=== PATIENT | female | born 1960 | race Two or more races ===

== ENCOUNTER → 2016-11-27 | Outpatient (CLI) | payer BC ==
[2016-11-27 12:28] LABS: Basophils # (auto) 0 uL; Basophils % (auto) 0.3 % (0.0-2.0); CONDITION Y; Eosinophils # (auto) 0.2 uL; Eosinophils % (auto) 3.2 % (0.0-7.0); Hematocrit 41.9 % (36.0-46.0); Hemoglobin 14.2 g/dL (12.2-16.2); Lymphocytes # (auto) 1.5 uL; Lymphocytes % (auto) 19.4 % (10.0-50.0); Mean Corpuscular Hemoglobin 29.7 pg (28.0-32.0); Mean Corpuscular Hgb Conc. 33.9 g/dL (32.0-36.0); Mean Corpuscular Volume 87.6 fL (80.0-100.0); Mean Platelet Volume 8.5 fL (7.4-10.4); Monocytes # (auto) 0.5 uL; Monocytes % (auto) 6.7 % (0.0-12.0); Neutrophils # (auto) 5.4 uL; Neutrophils % (auto) 70.4 % (37.0-80.0); Platelet Count (auto) 409 10^3/uL (140-450); Red Cell Distribution Width 13.9 % (11.6-16.0); White Blood Cell 7.6 10^3/uL (4.4-10.8)
[2016-11-27 12:30] LABS: Urine Bilirubin Negative (Negative); Urine Blood Negative /uL (Negative); Urine Color Yellow (Yellow); Urine Glucose Normal (Normal); Urine Ketone Negative (Negative); Urine Mucus FEW (None Seen); Urine Nitrite Negative (Negative); Urine RBC 1 /hpf (0 - 4); Urine Squamous Epithelial Cell FEW /hpf (<5); Urine Urobilinogen Normal (Negative)
[2016-11-27 12:58] LABS: Albumin 3.6 g/dL (3.4-5.0); BUN/Creatinine Ratio 12.7; Bilirubin, Total 0.5 mg/dL (0.2-1.0); Calcium 9.5 mg/dL (8.5-10.1); Total Protein 7.7 g/dL (6.4-8.2)
== END | disposition home or self-care (01) ==
LOC: LAB 10:48
PROVIDERS: ATTEND Internal Medicine
DX: I10 Essential (primary) hypertension (principal); E78.2 Mixed hyperlipidemia; E55.9 Vitamin D deficiency, unspecified; R73.09 Other abnormal glucose
CPT/HCPCS: 36415; 80053; 80061; 81001; 82306; 83036; 84439; 84443; 85025

== ENCOUNTER → 2018-05-02 | Outpatient (CLI) | payer BC ==
[2018-05-02 10:49] LABS: Basophils # (auto) 0 uL; Basophils % (auto) 0.7 % (0.0-2.0); Eosinophils # (auto) 0.2 uL; Eosinophils % (auto) 2.7 % (0.0-7.0); Hematocrit 45.6 % (36.0-46.0); Hemoglobin 15.3 g/dL (12.2-16.2); Lymphocytes # (auto) 1.3 uL; Lymphocytes % (auto) 21.2 % (10.0-50.0); Mean Corpuscular Hemoglobin 29.8 pg (28.0-32.0); Mean Corpuscular Hgb Conc. 33.5 g/dL (32.0-36.0); Mean Corpuscular Volume 88.8 fL (80.0-100.0); Monocytes # (auto) 0.3 uL; Monocytes % (auto) 5.7 % (0.0-12.0); Neutrophils # (auto) 4.2 uL; Neutrophils % (auto) 69.7 % (37.0-80.0); Platelet Count (auto) 383 10^3/uL (140-450); Red Blood Cells 5.14 10^6/uL (4.0-5.20); Red Cell Distribution Width 13.5 % (11.8-14.3)
[2018-05-02 11:12] LABS: Potassium 4.1 mmol/L (3.5-5.1)
[2018-05-02 11:21] LABS: Albumin 3.6 g/dL (3.4-5.0); BUN/Creatinine Ratio 17.5; Bilirubin, Total 0.4 mg/dL (0.2-1.0); Calcium 8.6 mg/dL (8.5-10.1); Total Protein 7.6 g/dL (6.4-8.2)
== END | disposition home or self-care (01) ==
LOC: LAB 09:45
PROVIDERS: ATTEND Physician Assistant
DX: E78.49 Other hyperlipidemia (principal); I12.9 Hypertensive chronic kidney disease with stage 1 through stage 4 chronic kidney disease, or unspecified chronic kidney disease; N18.3 Chronic kidney disease, stage 3 (moderate); E55.9 Vitamin D deficiency, unspecified
CPT/HCPCS: 36415; 80053; 80061; 82306; 85025

== ENCOUNTER → 2019-06-13 | Outpatient (CLI) | payer BC ==
[2019-06-13 08:06] LABS: Basophils # (auto) 0 10 ^3/uL (0-0.2); Basophils % (auto) 0.8 % (0.0-2.0); Eosinophils # (auto) 0.1 10 ^3/uL (0-0.8); Eosinophils % (auto) 2.3 % (0.0-7.0); Hematocrit 45.7 % (36.0-46.0); Hemoglobin 15.4 g/dL (12.2-16.2); Lymphocytes # (auto) 1.5 10 ^3/uL (0.4-5.4); Lymphocytes % (auto) 24.7 % (10.0-50.0); Mean Corpuscular Hemoglobin 29.8 pg (28.0-32.0); Mean Corpuscular Hgb Conc. 33.8 g/dL (32.0-36.0); Mean Corpuscular Volume 88.2 fL (80.0-100.0); Monocytes # (auto) 0.4 10 ^3/uL (0-1.3); Monocytes % (auto) 7.1 % (0.0-12.0); Neutrophils % (auto) 65.1 % (37.0-80.0); Nucleated Red Blood Cells % 0.1 %; Platelet Count (auto) 399 10^3/uL (140-450); Red Blood Cells 5.18 10^6/uL (4.0-5.20); Red Cell Distribution Width 13.1 % (11.8-14.3); White Blood Cell 6.1 10^3/uL (4.4-10.8)
[2019-06-13 08:19] LABS: Albumin 3.7 g/dL (3.4-5.0); Calcium 9.3 mg/dL (8.5-10.1); Potassium 4.1 mmol/L (3.5-5.1)
[2019-06-13 08:24] LABS: BUN/Creatinine Ratio 12.9; Bilirubin, Total 0.6 mg/dL (0.2-1.0); Total Protein 7.9 g/dL (6.4-8.2)
== END | disposition home or self-care (01) ==
LOC: LAB 07:33
PROVIDERS: ATTEND Physician Assistant
DX: I12.9 Hypertensive chronic kidney disease with stage 1 through stage 4 chronic kidney disease, or unspecified chronic kidney disease (principal); N18.3 Chronic kidney disease, stage 3 (moderate); E78.49 Other hyperlipidemia; E55.9 Vitamin D deficiency, unspecified; E66.9 Obesity, unspecified; Z86.19 Personal history of other infectious and parasitic diseases
CPT/HCPCS: 36415; 80053; 80061; 82306; 85025; 86703

== ENCOUNTER → 2019-11-23 | Outpatient (CLI) | payer BC ==
[2019-11-23 10:25] LABS: Basophils # (auto) 0 10 ^3/uL (0-0.2); Basophils % (auto) 0.8 % (0.0-2.0); Eosinophils # (auto) 0.1 10 ^3/uL (0-0.8); Eosinophils % (auto) 2.2 % (0.0-7.0); Hematocrit 44.6 % (36.0-46.0); Hemoglobin 14.7 g/dL (12.2-16.2); Lymphocytes # (auto) 1.1 10 ^3/uL (0.4-5.4); Lymphocytes % (auto) 17.1 % (10.0-50.0); Mean Corpuscular Hemoglobin 29.4 pg (28.0-32.0); Mean Corpuscular Hgb Conc. 33.1 g/dL (32.0-36.0); Monocytes # (auto) 0.5 10 ^3/uL (0-1.3); Monocytes % (auto) 7.2 % (0.0-12.0); Neutrophils # (auto) 4.6 10 ^3/uL (1.6-8.6); Neutrophils % (auto) 72.7 % (37.0-80.0); Nucleated Red Blood Cells % 0.1 %; Platelet Count (auto) 365 10^3/uL (140-450); Red Blood Cells 5.01 10^6/uL (4.0-5.20); Red Cell Distribution Width 13.2 % (11.8-14.3); White Blood Cell 6.3 10^3/uL (4.4-10.8)
[2019-11-23 10:37] LABS: Urine Bacteria NONE SEEN /hpf (None Seen); Urine Blood TRACE /uL (Negative); Urine Mucus FEW (None Seen); Urine WBC 15 /hpf (0 - 5)
[2019-11-23 11:04] LABS: Albumin 3.6 g/dL (3.4-5.0); Calcium 8.8 mg/dL (8.5-10.1); Magnesium 2.4 mg/dL (1.6-2.6); Potassium 4.2 mmol/L (3.5-5.1)
[2019-11-23 11:09] LABS: BUN/Creatinine Ratio 13.5; Bilirubin, Total 0.3 mg/dL (0.2-1.0); Total Protein 7.4 g/dL (6.4-8.2); Uric Acid 4.7 mg/dL (2.6-6.0)
== END | disposition home or self-care (01) ==
LOC: LAB 10:05
PROVIDERS: ATTEND Internal Medicine
DX: Z13.21 Encounter for screening for nutritional disorder (principal); Z13.228 Encounter for screening for other metabolic disorders; Z13.29 Encounter for screening for other suspected endocrine disorder; J44.9 Chronic obstructive pulmonary disease, unspecified; E55.9 Vitamin D deficiency, unspecified; R73.09 Other abnormal glucose; D51.0 Vitamin B12 deficiency anemia due to intrinsic factor deficiency; E61.2 Magnesium deficiency; Z00.00 Encounter for general adult medical examination without abnormal findings; Z76.89 Persons encountering health services in other specified circumstances
CPT/HCPCS: 36415; 80053; 80061; 81001; 82306; 82607; 83036; 83735; 84443; 84550; 85025

== ENCOUNTER → 2020-06-20 | Outpatient (CLI) | payer BC ==
[2020-06-20 09:59] LABS: Urine Bacteria NONE SEEN /hpf (None Seen); Urine Blood 1+ /uL (Negative); Urine Specific Gravity 1.013 (1.001-1.035); Urine WBC 2 /hpf (0 - 5)
[2020-06-20 10:28] LABS: Albumin 3.8 g/dL (3.4-5.0); Calcium 8.9 mg/dL (8.5-10.1); Magnesium 2.5 mg/dL (1.6-2.6); Potassium 4.6 mmol/L (3.5-5.1)
[2020-06-20 10:31] LABS: BUN/Creatinine Ratio 13.5; Bilirubin, Total 0.6 mg/dL (0.2-1.0); Total Protein 7.9 g/dL (6.4-8.2)
[2020-06-20 14:09] LABS: Free T4 (Free Thyroxine) 1.21 ng/dL (0.89-1.76); T3 Total 0.99 ng/mL (0.60-1.81)
[2020-06-20 14:10] LABS: Free T3 2.79 pg/mL (2.3-4.2)
== END | disposition home or self-care (01) ==
LOC: LAB 09:21
DX: E61.2 Magnesium deficiency (principal); R68.89 Other general symptoms and signs; D51.0 Vitamin B12 deficiency anemia due to intrinsic factor deficiency; R82.991 Hypocitraturia; E78.41 Elevated Lipoprotein(a); E79.0 Hyperuricemia without signs of inflammatory arthritis and tophaceous disease
CPT/HCPCS: 36415; 80053; 81001; 83036; 83735; 84439; 84480; 84481; 84550

== ENCOUNTER → 2020-08-15 | Outpatient (CLI) | payer BC ==
[2020-08-15 10:24] LABS: Basophils # (auto) 0.1 10 ^3/uL (0-0.2); Eosinophils # (auto) 0.2 10 ^3/uL (0-0.8); Eosinophils % (auto) 2.1 % (0.0-7.0); Hematocrit 43.5 % (36.0-46.0); Hemoglobin 14.9 g/dL (12.2-16.2); Lymphocytes # (auto) 1.7 10 ^3/uL (0.4-5.4); Lymphocytes % (auto) 23.2 % (10.0-50.0); Mean Corpuscular Hemoglobin 30.2 pg (28.0-32.0); Mean Corpuscular Hgb Conc. 34.2 g/dL (32.0-36.0); Mean Corpuscular Volume 88.5 fL (80.0-100.0); Monocytes # (auto) 0.4 10 ^3/uL (0-1.3); Monocytes % (auto) 5.9 % (0.0-12.0); Neutrophils % (auto) 67.8 % (37.0-80.0); Nucleated Red Blood Cells % 0.1 %; Platelet Count (auto) 394 10^3/uL (140-450); Red Blood Cells 4.91 10^6/uL (4.0-5.20); Red Cell Distribution Width 13.4 % (11.8-14.3); White Blood Cell 7.4 10^3/uL (4.4-10.8)
== END | disposition home or self-care (01) ==
LOC: LAB 09:38
PROVIDERS: ATTEND Obstetrics & Gynecology Gynecologic Oncology
DX: R53.82 Chronic fatigue, unspecified (principal); Z78.0 Asymptomatic menopausal state
CPT/HCPCS: 36415; 82670; 83001; 85025

== ENCOUNTER → 2020-09-03 | Outpatient (CLI) | payer BC ==
[2020-09-03 13:19] LABS: Basophils # (auto) 0.1 10 ^3/uL (0-0.2); Basophils % (auto) 1.3 % (0.0-2.0); Eosinophils # (auto) 0.2 10 ^3/uL (0-0.8); Eosinophils % (auto) 2.3 % (0.0-7.0); Hemoglobin 15.1 g/dL (12.2-16.2); Lymphocytes # (auto) 1.4 10 ^3/uL (0.4-5.4); Lymphocytes % (auto) 19.2 % (10.0-50.0); Mean Corpuscular Hemoglobin 30.2 pg (28.0-32.0); Mean Corpuscular Hgb Conc. 34.4 g/dL (32.0-36.0); Mean Corpuscular Volume 87.9 fL (80.0-100.0); Monocytes # (auto) 0.5 10 ^3/uL (0-1.3); Monocytes % (auto) 7.2 % (0.0-12.0); Nucleated Red Blood Cells % 0.4 %; Platelet Count (auto) 357 10^3/uL (140-450); Red Blood Cells 5.01 10^6/uL (4.0-5.20); Red Cell Distribution Width 13.4 % (11.8-14.3); White Blood Cell 7.2 10^3/uL (4.4-10.8)
[2020-09-03 13:30] LABS: Urine Bacteria NONE SEEN /hpf (None Seen); Urine Blood 1+ /uL (Negative); Urine Hyaline Cast FEW /lpf (0 - 2); Urine Mucus FEW (None Seen); Urine Specific Gravity 1.017 (1.001-1.035); Urine WBC 1 /hpf (0 - 5)
[2020-09-03 13:39] LABS: INR 0.97 (0.9-1.15); Partial Thromboplastin Time 26.9 sec (23.0-31.2)
[2020-09-03 13:48] LABS: Calcium 8.9 mg/dL (8.5-10.1); Potassium 3.9 mmol/L (3.5-5.1)
[2020-09-03 13:55] LABS: Albumin 3.7 g/dL (3.4-5.0); BUN/Creatinine Ratio 14.8; Bilirubin, Total 0.5 mg/dL (0.2-1.0); Total Protein 7.8 g/dL (6.4-8.2); Uric Acid 5.9 mg/dL (2.6-6.0)
[2020-09-03 14:11] LABS: Free T3 2.86 pg/mL (2.3-4.2); Free T4 (Free Thyroxine) 1.17 ng/dL (0.89-1.76); T3 Total 0.91 ng/mL (0.60-1.81)
== END | disposition home or self-care (01) ==
LOC: LAB 12:52
PROVIDERS: ATTEND Plastic Surgery
DX: E61.2 Magnesium deficiency (principal); R68.89 Other general symptoms and signs; D51.0 Vitamin B12 deficiency anemia due to intrinsic factor deficiency; R79.89 Other specified abnormal findings of blood chemistry; R82.998 Other abnormal findings in urine; E78.49 Other hyperlipidemia
CPT/HCPCS: 36415; 80053; 81001; 83036; 84439; 84480; 84481; 84550; 84702; 85025; 85610; 85730; 86703

== ENCOUNTER 2021-01-04 09:55 | Inpatient (IN) | payer BC ==
[~2021-01-04] VITALS: Ht 160 cm; Wt 89.2 kg
[2021-01-04 10:46] LABS: Basophils # (auto) 0.1 10 ^3/uL (0-0.2); Eosinophils # (auto) 0.1 10 ^3/uL (0-0.8); Lymphocytes # (auto) 1.5 10 ^3/uL (0.4-5.4); Monocytes # (auto) 0.6 10 ^3/uL (0-1.3)
[2021-01-04 10:47] LABS: Basophils % (auto) 0.8 % (0.0-2.0); Hematocrit 42.7 % (36.0-46.0); Lymphocytes % (auto) 20.7 % (10.0-50.0); Mean Corpuscular Hemoglobin 28.5 pg (28.0-32.0); Mean Corpuscular Hgb Conc. 32.9 g/dL (32.0-36.0); Mean Corpuscular Volume 86.6 fL (80.0-100.0); Monocytes % (auto) 7.7 % (0.0-12.0); Neutrophils % (auto) 69.8 % (37.0-80.0); Nucleated Red Blood Cells % 0.1 %; Red Blood Cells 4.93 10^6/uL (4.0-5.20); White Blood Cell 7.1 10^3/uL (4.4-10.8)
[2021-01-04 11:07] LABS: Albumin 3.2 g/dL (3.4-5.0); Calcium 8.8 mg/dL (8.5-10.1); Potassium 3.8 mmol/L (3.5-5.1)
[2021-01-04 11:10] LABS: BUN/Creatinine Ratio 10.7; Bilirubin, Total 0.4 mg/dL (0.2-1.0); Total Protein 7.5 g/dL (6.4-8.2)
[2021-01-04] MEDS ORDERED: ACETAMINOPHEN 325 MG TAB PO ONE (11:15)
[2021-01-04] MEDS ORDERED: IOHEXOL 300 MG/ML 100ML BOTTLE IJ ONE (11:38)
[2021-01-04] MEDS ORDERED: VANCOMYCIN PER PHARMACY 0 MG IV SCH (13:00)
[2021-01-04] MEDS ORDERED: PIPERACILLIN-TAZOB 3.375GM 100 ML IV ONE (13:00)
[2021-01-04] MEDS ORDERED: VANCOMYCIN 1GM/250ML 250 ML IV ONE (13:15)
[2021-01-04] MEDS ORDERED: MORPHINE SULFATE INJECTION 2 MG/ML SYRG IV PRN ×2 (14:45)
[2021-01-04] MEDS ORDERED: NITROGLYCERIN 0.4 MG SL TAB SL PRN (14:45)
[2021-01-04] MEDS ORDERED: hydrALAZINE HCL 20 MG/ML VL IV PRN (14:45)
[2021-01-04 20:00] VITALS: BP 137/76
[2021-01-04] MEDS: PIPERACILLIN-TAZOB 3.375GM 100 ML IV SCH (21:31)
[2021-01-04 22:00] VITALS: BP 137/76
[2021-01-05] MEDS: VANCOMYCIN 1GM/250ML 250 ML IV SCH ×2 (01:34→12:35)
[2021-01-05] MEDS: PIPERACILLIN-TAZOB 3.375GM 100 ML IV SCH ×5 (04:32→22:06)
[2021-01-05 05:00] VITALS: BP 124/75
[2021-01-05 07:46] LABS: Basophils # (auto) 0.1 10 ^3/uL (0-0.2); Basophils % (auto) 0.7 % (0.0-2.0); Eosinophils # (auto) 0.1 10 ^3/uL (0-0.8); Eosinophils % (auto) 1.3 % (0.0-7.0); Hematocrit 40.4 % (36.0-46.0); Hemoglobin 13.4 g/dL (12.2-16.2); Lymphocytes # (auto) 1.3 10 ^3/uL (0.4-5.4); Lymphocytes % (auto) 18.1 % (10.0-50.0); Mean Corpuscular Hemoglobin 28.7 pg (28.0-32.0); Mean Corpuscular Hgb Conc. 33.3 g/dL (32.0-36.0); Mean Corpuscular Volume 86.4 fL (80.0-100.0); Monocytes # (auto) 0.6 10 ^3/uL (0-1.3); Monocytes % (auto) 8.7 % (0.0-12.0); Neutrophils # (auto) 5.2 10 ^3/uL (1.6-8.6); Neutrophils % (auto) 71.2 % (37.0-80.0); Nucleated Red Blood Cells % 0.1 %; Red Blood Cells 4.68 10^6/uL (4.0-5.20); Red Cell Distribution Width 13.8 % (11.8-14.3); White Blood Cell 7.3 10^3/uL (4.4-10.8)
[2021-01-05 07:56] LABS: Potassium 4.7 mmol/L (3.5-5.1)
[2021-01-05 07:59] LABS: Albumin 2.8 g/dL (3.4-5.0); BUN/Creatinine Ratio 11.1
[2021-01-05 08:02] LABS: Bilirubin, Total 0.5 mg/dL (0.2-1.0)
[2021-01-05 09:01] VITALS: BP 143/95
[2021-01-05 13:00] VITALS: BP 128/61
[2021-01-05 17:04] VITALS: BP 127/74
[2021-01-05 20:00] VITALS: BP 136/76
[2021-01-05 22:00] VITALS: BP 136/79
[2021-01-05 22:26] LABS: Urine Bacteria FEW /hpf (None Seen); Urine WBC 1 /hpf (0 - 5)
[2021-01-05 22:35] LABS: Urine Blood Trace /uL (Negative); Urine Specific Gravity 1.005 (1.001-1.035)
[2021-01-06] VITALS (7 sets, daily range): BP systolic 120–150; BP diastolic 73–86
[2021-01-06] MEDS: VANCOMYCIN 1GM/250ML 250 ML IV SCH (01:20)
[2021-01-06] MEDS: PIPERACILLIN-TAZOB 3.375GM 100 ML IV SCH ×5 (04:20→22:48)
[2021-01-06 07:28] LABS: Basophils # (auto) 0 10 ^3/uL (0-0.2); Eosinophils # (auto) 0 10 ^3/uL (0-0.8); Hemoglobin 14.1 g/dL (12.2-16.2); Monocytes # (auto) 0.7 10 ^3/uL (0-1.3); Monocytes % (auto) 9.2 % (0.0-12.0); Neutrophils # (auto) 5.8 10 ^3/uL (1.6-8.6)
[2021-01-06 07:31] LABS: Basophils % (auto) 0.5 % (0.0-2.0); Eosinophils % (auto) 0.4 % (0.0-7.0); Hematocrit 41.6 % (36.0-46.0); Lymphocytes % (auto) 13.6 % (10.0-50.0); Mean Corpuscular Hemoglobin 29.2 pg (28.0-32.0); Mean Corpuscular Hgb Conc. 33.8 g/dL (32.0-36.0); Mean Corpuscular Volume 86.4 fL (80.0-100.0); Neutrophils % (auto) 76.3 % (37.0-80.0); Nucleated Red Blood Cells % 0.1 %; Red Blood Cells 4.81 10^6/uL (4.0-5.20); Red Cell Distribution Width 13.7 % (11.8-14.3); White Blood Cell 7.6 10^3/uL (4.4-10.8)
[2021-01-06 07:32] LABS: Calcium 9.1 mg/dL (8.5-10.1); Potassium 4.2 mmol/L (3.5-5.1)
[2021-01-06 07:39] LABS: Albumin 2.8 g/dL (3.4-5.0); Bilirubin, Total 0.5 mg/dL (0.2-1.0); Total Protein 6.8 g/dL (6.4-8.2)
[2021-01-06] MEDS: CLINDAMYCIN 600MG IV 50 ML IV SCH ×2 (13:30→21:45)
[2021-01-06] MEDS: ONDANSETRON HCL 4 MG/2 ML VIAL IV PRN (19:05)
[2021-01-06] MEDS: ACETAMINOPHEN 325 MG TAB PO PRN (19:06)
[2021-01-07] MEDS: PIPERACILLIN-TAZOB 3.375GM 100 ML IV SCH ×4 (04:03→22:00)
[2021-01-07 05:00] VITALS: BP 134/72
[2021-01-07] MEDS: CLINDAMYCIN 600MG IV 50 ML IV SCH ×2 (05:23→14:40)
[2021-01-07 05:37] LABS: Basophils # (auto) 0 10 ^3/uL (0-0.2); Eosinophils # (auto) 0 10 ^3/uL (0-0.8); Monocytes # (auto) 0.8 10 ^3/uL (0-1.3)
[2021-01-07 05:39] LABS: Basophils % (auto) 0.5 % (0.0-2.0); Eosinophils % (auto) 0.2 % (0.0-7.0); Hematocrit 40.3 % (36.0-46.0); Hemoglobin 13.2 g/dL (12.2-16.2); Lymphocytes % (auto) 10.9 % (10.0-50.0); Mean Corpuscular Hemoglobin 28.1 pg (28.0-32.0); Mean Corpuscular Hgb Conc. 32.7 g/dL (32.0-36.0); Monocytes % (auto) 8.8 % (0.0-12.0); Neutrophils # (auto) 7.4 10 ^3/uL (1.6-8.6); Neutrophils % (auto) 79.6 % (37.0-80.0); Nucleated Red Blood Cells % 0.2 %; Red Blood Cells 4.69 10^6/uL (4.0-5.20); Red Cell Distribution Width 13.9 % (11.8-14.3); White Blood Cell 9.3 10^3/uL (4.4-10.8)
[2021-01-07 06:04] LABS: Potassium 3.9 mmol/L (3.5-5.1)
[2021-01-07 06:19] LABS: Albumin 2.7 g/dL (3.4-5.0); Bilirubin, Total 0.4 mg/dL (0.2-1.0); Calcium 8.9 mg/dL (8.5-10.1); Magnesium 2.5 mg/dL (1.6-2.6); Total Protein 6.6 g/dL (6.4-8.2)
[2021-01-07 08:40] VITALS: BP 137/84
[2021-01-07 12:30] VITALS: BP 149/83
[2021-01-07] MEDS ORDERED: fentaNYL CITRATE 100 MCG/2 ML VL ONE (15:24)
[2021-01-07] MEDS ORDERED: MIDAZOLAM HCL 2MG/2ML 2ml VIAL (1mg/ml) ONE (15:24)
[2021-01-07] MEDS ORDERED: LIDOCAINE 2%HCL (LOCAL ANESTH.) INJ 20ML MDV ONE (15:28)
[2021-01-07] MEDS: ONDANSETRON HCL 4 MG/2 ML VIAL IV PRN (16:23)
[2021-01-07 16:40] VITALS: BP 157/86
[2021-01-07] MEDS: SODIUM CHLORIDE 0.9% 1,000 ML IV SCH (18:00)
[2021-01-07 22:00] VITALS: BP 142/81
[2021-01-07] MEDS: LINEZOLID 600MG/300ML 300 ML IV SCH (22:00)
[2021-01-08] MEDS: SODIUM CHLORIDE 0.9% 1,000 ML IV SCH ×3 (04:03→22:02)
[2021-01-08] MEDS: PIPERACILLIN-TAZOB 3.375GM 100 ML IV SCH ×3 (04:03→16:00)
[2021-01-08 04:40] LABS: Urine Bacteria NONE SEEN /hpf (None Seen); Urine Blood TRACE /uL (Negative); Urine Specific Gravity 1.016 (1.001-1.035); Urine WBC 4 /hpf (0 - 5)
[2021-01-08 05:00] VITALS: BP 152/90
[2021-01-08 05:56] LABS: Basophils # (auto) 0 10 ^3/uL (0-0.2); Eosinophils # (auto) 0 10 ^3/uL (0-0.8); Monocytes # (auto) 0.6 10 ^3/uL (0-1.3); Neutrophils # (auto) 6.5 10 ^3/uL (1.6-8.6); White Blood Cell 8.2 10^3/uL (4.4-10.8)
[2021-01-08 06:00] LABS: Basophils % (auto) 0.6 % (0.0-2.0); Eosinophils % (auto) 0.3 % (0.0-7.0); Hematocrit 42.3 % (36.0-46.0); Hemoglobin 13.9 g/dL (12.2-16.2); Mean Corpuscular Hemoglobin 28.3 pg (28.0-32.0); Mean Corpuscular Hgb Conc. 32.9 g/dL (32.0-36.0); Mean Corpuscular Volume 86.1 fL (80.0-100.0); Monocytes % (auto) 7.7 % (0.0-12.0); Neutrophils % (auto) 79.4 % (37.0-80.0); Nucleated Red Blood Cells % 0.1 %; Red Blood Cells 4.91 10^6/uL (4.0-5.20); Red Cell Distribution Width 13.7 % (11.8-14.3)
[2021-01-08 06:16] LABS: Potassium 3.7 mmol/L (3.5-5.1)
[2021-01-08 06:23] LABS: Albumin 2.8 g/dL (3.4-5.0); BUN/Creatinine Ratio 7.6; Bilirubin, Total 0.5 mg/dL (0.2-1.0); Calcium 8.8 mg/dL (8.5-10.1); Total Protein 7.2 g/dL (6.4-8.2)
[2021-01-08] MEDS: LINEZOLID 600MG/300ML 300 ML IV SCH (08:43)
[2021-01-08 09:00] VITALS: BP 153/84
[2021-01-08 13:00] VITALS: BP 154/82
[2021-01-08] MEDS: PIPERACILLIN-TAZOB 2.25GM 50 ML IV SCH ×2 (16:46→22:03)
[2021-01-08 17:00] VITALS: BP 147/87
[2021-01-08] MEDS: Ensure HIGH Protein Chocolate 8oz Bottle PO SCH (19:03)
[2021-01-08 22:00] VITALS: BP 156/85
[2021-01-09] MEDS: LINEZOLID 600MG/300ML 300 ML IV SCH ×2 (00:30→13:00)
[2021-01-09 05:00] VITALS: BP 135/71
[2021-01-09] MEDS: PIPERACILLIN-TAZOB 2.25GM 50 ML IV SCH ×4 (05:02→22:53)
[2021-01-09 05:35] LABS: Basophils # (auto) 0 10 ^3/uL (0-0.2); Basophils % (auto) 0.7 % (0.0-2.0); Eosinophils # (auto) 0.1 10 ^3/uL (0-0.8); Eosinophils % (auto) 1.7 % (0.0-7.0); Hemoglobin 12.4 g/dL (12.2-16.2); Lymphocytes # (auto) 0.9 10 ^3/uL (0.4-5.4); Lymphocytes % (auto) 12.3 % (10.0-50.0); Mean Corpuscular Hgb Conc. 33.4 g/dL (32.0-36.0); Mean Corpuscular Volume 86.9 fL (80.0-100.0); Monocytes # (auto) 0.8 10 ^3/uL (0-1.3); Monocytes % (auto) 11.2 % (0.0-12.0); Neutrophils # (auto) 5.2 10 ^3/uL (1.6-8.6); Neutrophils % (auto) 74.1 % (37.0-80.0); Nucleated Red Blood Cells % 0.1 %; Red Blood Cells 4.26 10^6/uL (4.0-5.20); Red Cell Distribution Width 13.7 % (11.8-14.3); White Blood Cell 7.1 10^3/uL (4.4-10.8)
[2021-01-09 05:54] LABS: Potassium 3.8 mmol/L (3.5-5.1)
[2021-01-09 06:03] LABS: Albumin 2.5 g/dL (3.4-5.0); BUN/Creatinine Ratio 8.4; Bilirubin, Total 0.3 mg/dL (0.2-1.0); Calcium 8.8 mg/dL (8.5-10.1); Total Protein 6.2 g/dL (6.4-8.2)
[2021-01-09] MEDS: Ensure HIGH Protein Chocolate 8oz Bottle PO SCH ×3 (08:00→18:00)
[2021-01-09 08:33] VITALS: BP 142/76
[2021-01-09] MEDS: SODIUM CHLORIDE 0.9% 1,000 ML IV SCH ×2 (10:00→14:23)
[2021-01-09] MEDS: ASCORBIC ACID 500 MG TAB PO SCH (10:00)
[2021-01-09] MEDS: ZINC SULFATE 220mg CAP or TAB PO SCH (10:00)
[2021-01-09] MEDS: MULTIPLE VITAMIN TAB PO SCH (10:00)
[2021-01-09 12:51] VITALS: BP 157/91
[2021-01-09 16:36] VITALS: BP 139/75
[2021-01-09 22:00] VITALS: BP 146/83
[2021-01-09] MEDS: ONDANSETRON HCL 4 MG/2 ML VIAL IV PRN (22:53)
[2021-01-10] MEDS: LINEZOLID 600MG/300ML 300 ML IV SCH ×2 (00:33→12:29)
[2021-01-10] MEDS: ONDANSETRON HCL 4 MG/2 ML VIAL IV PRN ×2 (04:55→10:23)
[2021-01-10] MEDS: PIPERACILLIN-TAZOB 2.25GM 50 ML IV SCH ×4 (04:56→22:46)
[2021-01-10 05:00] VITALS: BP 150/89
[2021-01-10] MEDS: SODIUM CHLORIDE 0.9% 1,000 ML IV SCH ×2 (06:00→16:00)
[2021-01-10 06:41] LABS: Basophils # (auto) 0.1 10 ^3/uL (0-0.2); Eosinophils # (auto) 0.2 10 ^3/uL (0-0.8); Eosinophils % (auto) 3.2 % (0.0-7.0); Hematocrit 36.5 % (36.0-46.0); Hemoglobin 12.3 g/dL (12.2-16.2); Lymphocytes % (auto) 15.2 % (10.0-50.0); Mean Corpuscular Hemoglobin 29.1 pg (28.0-32.0); Mean Corpuscular Hgb Conc. 33.7 g/dL (32.0-36.0); Mean Corpuscular Volume 86.4 fL (80.0-100.0); Monocytes # (auto) 0.7 10 ^3/uL (0-1.3); Neutrophils # (auto) 4.7 10 ^3/uL (1.6-8.6); Neutrophils % (auto) 69.6 % (37.0-80.0); Nucleated Red Blood Cells % 0.1 %; Red Blood Cells 4.22 10^6/uL (4.0-5.20); Red Cell Distribution Width 13.6 % (11.8-14.3); White Blood Cell 6.7 10^3/uL (4.4-10.8)
[2021-01-10 06:45] LABS: BUN/Creatinine Ratio 7.5; Calcium 8.8 mg/dL (8.5-10.1); Potassium 3.8 mmol/L (3.5-5.1)
[2021-01-10] MEDS: Ensure HIGH Protein Chocolate 8oz Bottle PO SCH ×3 (08:30→18:00)
[2021-01-10 09:00] VITALS: BP 158/100
[2021-01-10] MEDS: ZINC SULFATE 220mg CAP or TAB PO SCH (09:39)
[2021-01-10] MEDS: MULTIPLE VITAMIN TAB PO SCH (09:39)
[2021-01-10] MEDS: ASCORBIC ACID 500 MG TAB PO SCH (09:39)
[2021-01-10 13:00] VITALS: BP 139/74
[2021-01-10 16:52] VITALS: BP 139/77
[2021-01-10 22:00] VITALS: BP 152/83
[2021-01-11] MEDS: LINEZOLID 600MG/300ML 300 ML IV SCH ×3 (01:15→23:59)
[2021-01-11] MEDS: SODIUM CHLORIDE 0.9% 1,000 ML IV SCH ×3 (03:20→21:37)
[2021-01-11] MEDS: PIPERACILLIN-TAZOB 2.25GM 50 ML IV SCH ×4 (04:25→21:34)
[2021-01-11 05:00] VITALS: BP 148/82
[2021-01-11 05:36] LABS: Basophils # (auto) 0 10 ^3/uL (0-0.2); Basophils % (auto) 0.6 % (0.0-2.0); Eosinophils # (auto) 0.2 10 ^3/uL (0-0.8); Eosinophils % (auto) 3.9 % (0.0-7.0); Hematocrit 39.3 % (36.0-46.0); Mean Corpuscular Hemoglobin 28.6 pg (28.0-32.0); Mean Corpuscular Hgb Conc. 33.1 g/dL (32.0-36.0); Mean Corpuscular Volume 86.3 fL (80.0-100.0); Monocytes # (auto) 0.5 10 ^3/uL (0-1.3); Monocytes % (auto) 8.5 % (0.0-12.0); Neutrophils # (auto) 4.4 10 ^3/uL (1.6-8.6); Nucleated Red Blood Cells % 0.1 %; Red Blood Cells 4.55 10^6/uL (4.0-5.20); Red Cell Distribution Width 13.8 % (11.8-14.3); White Blood Cell 6.2 10^3/uL (4.4-10.8)
[2021-01-11 06:01] LABS: BUN/Creatinine Ratio 8.2; Calcium 8.8 mg/dL (8.5-10.1); Potassium 3.9 mmol/L (3.5-5.1)
[2021-01-11] MEDS: Ensure HIGH Protein Chocolate 8oz Bottle PO SCH ×3 (08:06→17:43)
[2021-01-11 09:00] VITALS: BP 159/84
[2021-01-11] MEDS: MULTIPLE VITAMIN TAB PO SCH (10:06)
[2021-01-11] MEDS: ZINC SULFATE 220mg CAP or TAB PO SCH (10:06)
[2021-01-11] MEDS: ASCORBIC ACID 500 MG TAB PO SCH (10:06)
[2021-01-11] MEDS: ONDANSETRON HCL 4 MG/2 ML VIAL IV PRN (10:07)
[2021-01-11 12:43] VITALS: BP 156/90
[2021-01-11 16:39] VITALS: BP 148/78
[2021-01-11 22:00] VITALS: BP 147/87
[2021-01-12] MEDS: PIPERACILLIN-TAZOB 2.25GM 50 ML IV SCH ×4 (03:30→21:13)
[2021-01-12 05:00] VITALS: BP 140/78
[2021-01-12] MEDS: SODIUM CHLORIDE 0.9% 1,000 ML IV SCH ×2 (08:00→17:10)
[2021-01-12] MEDS: Ensure HIGH Protein Chocolate 8oz Bottle PO SCH ×3 (08:26→18:00)
[2021-01-12 08:48] VITALS: BP 150/88
[2021-01-12] MEDS: ZINC SULFATE 220mg CAP or TAB PO SCH (10:15)
[2021-01-12] MEDS: ONDANSETRON HCL 4 MG/2 ML VIAL IV PRN (10:16)
[2021-01-12] MEDS: ASCORBIC ACID 500 MG TAB PO SCH (10:16)
[2021-01-12] MEDS: MULTIPLE VITAMIN TAB PO SCH (10:16)
[2021-01-12] MEDS: LINEZOLID 600MG/300ML 300 ML IV SCH ×2 (12:54→23:50)
[2021-01-12 13:00] VITALS: BP 160/93
[2021-01-12 17:00] VITALS: BP 144/75
[2021-01-12 22:00] VITALS: BP 142/79
[2021-01-13] MEDS: PIPERACILLIN-TAZOB 2.25GM 50 ML IV SCH ×4 (03:54→21:11)
[2021-01-13] MEDS: SODIUM CHLORIDE 0.9% 1,000 ML IV SCH ×2 (04:21→13:22)
[2021-01-13 05:00] VITALS: BP 144/82
[2021-01-13 06:02] LABS: Basophils # (auto) 0.1 10 ^3/uL (0-0.2); Basophils % (auto) 0.9 % (0.0-2.0); Eosinophils # (auto) 0.3 10 ^3/uL (0-0.8); Eosinophils % (auto) 4.5 % (0.0-7.0); Hematocrit 36.5 % (36.0-46.0); Hemoglobin 11.9 g/dL (12.2-16.2); Lymphocytes # (auto) 1.1 10 ^3/uL (0.4-5.4); Mean Corpuscular Hgb Conc. 32.5 g/dL (32.0-36.0); Mean Corpuscular Volume 86.2 fL (80.0-100.0); Monocytes # (auto) 0.5 10 ^3/uL (0-1.3); Monocytes % (auto) 8.1 % (0.0-12.0); Neutrophils # (auto) 4.1 10 ^3/uL (1.6-8.6); Neutrophils % (auto) 68.5 % (37.0-80.0); Red Blood Cells 4.23 10^6/uL (4.0-5.20); Red Cell Distribution Width 13.8 % (11.8-14.3)
[2021-01-13 06:22] LABS: Albumin 2.4 g/dL (3.4-5.0); Calcium 8.6 mg/dL (8.5-10.1); Magnesium 2.6 mg/dL (1.6-2.6); Potassium 3.9 mmol/L (3.5-5.1)
[2021-01-13 06:25] LABS: BUN/Creatinine Ratio 9.8; Bilirubin, Total 0.3 mg/dL (0.2-1.0); Total Protein 6.4 g/dL (6.4-8.2)
[2021-01-13] MEDS: Ensure HIGH Protein Chocolate 8oz Bottle PO SCH ×3 (08:57→17:41)
[2021-01-13 09:00] VITALS: BP 164/96
[2021-01-13] MEDS: ZINC SULFATE 220mg CAP or TAB PO SCH (09:30)
[2021-01-13] MEDS: ASCORBIC ACID 500 MG TAB PO SCH (09:30)
[2021-01-13] MEDS: MULTIPLE VITAMIN TAB PO SCH (09:30)
[2021-01-13 13:00] VITALS: BP 147/84
[2021-01-13] MEDS: LINEZOLID 600MG/300ML 300 ML IV SCH (13:05)
[2021-01-13] MEDS: ONDANSETRON HCL 4 MG/2 ML VIAL IV PRN (13:05)
[2021-01-13 16:43] VITALS: BP 158/82
[2021-01-13 22:00] VITALS: BP 153/86
[2021-01-14] MEDS: LINEZOLID 600MG/300ML 300 ML IV SCH ×3 (00:17→23:44)
[2021-01-14] MEDS: PIPERACILLIN-TAZOB 2.25GM 50 ML IV SCH ×4 (03:36→21:20)
[2021-01-14 05:00] VITALS: BP 150/87
[2021-01-14] MEDS: Ensure HIGH Protein Chocolate 8oz Bottle PO SCH ×3 (08:00→18:00)
[2021-01-14 09:00] VITALS: BP 160/92
[2021-01-14] MEDS: ASCORBIC ACID 500 MG TAB PO SCH (11:21)
[2021-01-14] MEDS: MULTIPLE VITAMIN TAB PO SCH (11:21)
[2021-01-14] MEDS: SODIUM CHLORIDE 0.9% 1,000 ML IV SCH ×3 (11:22→21:45)
[2021-01-14] MEDS: ZINC SULFATE 220mg CAP or TAB PO SCH (11:25)
[2021-01-14 12:34] LABS: Albumin 2.7 g/dL (3.4-5.0); Calcium 8.9 mg/dL (8.5-10.1)
[2021-01-14 12:39] LABS: BUN/Creatinine Ratio 9.5; Bilirubin, Total 0.2 mg/dL (0.2-1.0)
[2021-01-14 12:49] VITALS: BP 160/82
[2021-01-14 17:00] VITALS: BP 157/99
[2021-01-14] MEDS: ONDANSETRON HCL 4 MG/2 ML VIAL IV PRN (21:30)
[2021-01-14] MEDS: ACETAMINOPHEN 325 MG TAB PO PRN (21:30)
[2021-01-14 21:57] VITALS: BP 160/98
[2021-01-15] MEDS: PIPERACILLIN-TAZOB 2.25GM 50 ML IV SCH ×4 (03:50→22:05)
[2021-01-15 04:40] VITALS: BP 133/80
[2021-01-15] MEDS: SODIUM CHLORIDE 0.9% 1,000 ML IV SCH (06:00)
[2021-01-15] MEDS: Ensure HIGH Protein Chocolate 8oz Bottle PO SCH ×3 (08:00→18:07)
[2021-01-15 08:32] VITALS: BP 157/97
[2021-01-15] MEDS: ASCORBIC ACID 500 MG TAB PO SCH (10:35)
[2021-01-15] MEDS: MULTIPLE VITAMIN TAB PO SCH (10:35)
[2021-01-15] MEDS: LINEZOLID 600MG/300ML 300 ML IV SCH (12:04)
[2021-01-15] MEDS: ZINC SULFATE 220mg CAP or TAB PO SCH (12:04)
[2021-01-15 13:00] VITALS: BP 156/89
[2021-01-15 17:18] VITALS: BP 156/89
[2021-01-15 22:00] VITALS: BP 156/89
[2021-01-16] MEDS: LINEZOLID 600MG/300ML 300 ML IV SCH ×3 (00:20→23:42)
[2021-01-16] MEDS: PIPERACILLIN-TAZOB 2.25GM 50 ML IV SCH ×4 (04:26→21:59)
[2021-01-16 05:00] VITALS: BP 146/79
[2021-01-16 09:00] VITALS: BP 156/85
[2021-01-16] MEDS: ASCORBIC ACID 500 MG TAB PO SCH (10:32)
[2021-01-16] MEDS: ZINC SULFATE 220mg CAP or TAB PO SCH (10:33)
[2021-01-16] MEDS: MULTIPLE VITAMIN TAB PO SCH (10:33)
[2021-01-16] MEDS: ONDANSETRON HCL 4 MG/2 ML VIAL IV PRN (10:34)
[2021-01-16] MEDS: Ensure HIGH Protein Chocolate 8oz Bottle PO SCH ×3 (10:35→18:08)
[2021-01-16] MEDS: ACETAMINOPHEN 325 MG TAB PO PRN (10:39)
[2021-01-16 13:00] VITALS: BP 155/83
[2021-01-16 17:00] VITALS: BP 157/95
[2021-01-16 22:00] VITALS: BP 156/90
[2021-01-17] MEDS: PIPERACILLIN-TAZOB 2.25GM 50 ML IV SCH ×3 (04:28→16:14)
[2021-01-17 05:00] VITALS: BP 137/86
[2021-01-17 06:09] LABS: Basophils # (auto) 0.1 10 ^3/uL (0-0.2); Eosinophils # (auto) 0.3 10 ^3/uL (0-0.8); Eosinophils % (auto) 4.4 % (0.0-7.0); Hematocrit 38.1 % (36.0-46.0); Hemoglobin 12.9 g/dL (12.2-16.2); Lymphocytes # (auto) 1.1 10 ^3/uL (0.4-5.4); Lymphocytes % (auto) 18.6 % (10.0-50.0); Mean Corpuscular Hemoglobin 29.1 pg (28.0-32.0); Mean Corpuscular Hgb Conc. 33.9 g/dL (32.0-36.0); Mean Corpuscular Volume 85.9 fL (80.0-100.0); Monocytes # (auto) 0.6 10 ^3/uL (0-1.3); Monocytes % (auto) 9.6 % (0.0-12.0); Neutrophils # (auto) 3.9 10 ^3/uL (1.6-8.6); Neutrophils % (auto) 66.4 % (37.0-80.0); Red Blood Cells 4.44 10^6/uL (4.0-5.20); Red Cell Distribution Width 13.8 % (11.8-14.3); White Blood Cell 5.8 10^3/uL (4.4-10.8)
[2021-01-17 06:39] LABS: BUN/Creatinine Ratio 12.3; Bilirubin, Total 0.4 mg/dL (0.2-1.0); Calcium 8.8 mg/dL (8.5-10.1); Total Protein 7.4 g/dL (6.4-8.2)
[2021-01-17 08:50] VITALS: BP 159/96
[2021-01-17] MEDS: Ensure HIGH Protein Chocolate 8oz Bottle PO SCH ×3 (09:12→18:03)
[2021-01-17] MEDS: ZINC SULFATE 220mg CAP or TAB PO SCH (09:34)
[2021-01-17] MEDS: MULTIPLE VITAMIN TAB PO SCH (09:34)
[2021-01-17] MEDS: ASCORBIC ACID 500 MG TAB PO SCH (09:34)
[2021-01-17 13:00] VITALS: BP 135/77
[2021-01-17] MEDS: LINEZOLID 600MG/300ML 300 ML IV SCH (13:07)
[2021-01-17] MEDS ORDERED: ALPRAZolam 0.5 MG TAB PO PRN (16:15)
[2021-01-17 17:00] VITALS: BP 164/94
[2021-01-17 19:30] VITALS: BP 153/83
[2021-01-17] MEDS: ONDANSETRON HCL 4 MG/2 ML VIAL IV PRN (19:38)
== END 2021-01-17 21:12 | disposition home or self-care (01) | DRG 602 ==
LOC: ER 09:55 → TELE 14:40 → TELE-CENTR 18:49 → CENTRAL 01-12 22:15
PROVIDERS: ADMIT Internal Medicine; ATTEND Internal Medicine
PROC: 0W9F30Z Drainage of Abdominal Wall with Drainage Device, Percutaneous Approach (ICD-10-PCS; principal; 2021-01-07)
DX: L02.211 Cutaneous abscess of abdominal wall (principal); N17.0 Acute kidney failure with tubular necrosis; L03.311 Cellulitis of abdominal wall; E66.9 Obesity, unspecified; I10 Essential (primary) hypertension; N73.9 Female pelvic inflammatory disease, unspecified; Z20.822 Contact with and (suspected) exposure to COVID-19; S31.109A Unspecified open wound of abdominal wall, unspecified quadrant without penetration into peritoneal cavity, initial encounter; X58.XXXA Exposure to other specified factors, initial encounter; Y93.89 Activity, other specified; Y92.89 Other specified places as the place of occurrence of the external cause; Z68.34 Body mass index [BMI] 34.0-34.9, adult; Y99.8 Other external cause status; Z83.3 Family history of diabetes mellitus; Z90.49 Acquired absence of other specified parts of digestive tract
CPT/HCPCS: 10022; 36415; 71045; 72192; 74177; 76775; 77012; 80048; 80053; 80202; 81001; 83605; 83735; 85025; 87040; 87075; 87077; 87186; 87205; 87426; 93005; 96365; 96367; C1729; G0378; J2250; J2405; J2543; J3490

== ENCOUNTER 2021-01-19 07:43 | Inpatient (IN) | payer BC ==
[~2021-01-19] VITALS: Ht 160 cm; Wt 85.0 kg
[2021-01-19 09:46] LABS: Basophils # (auto) 0.1 10 ^3/uL (0-0.2); Basophils % (auto) 0.6 % (0.0-2.0); Eosinophils # (auto) 0 10 ^3/uL (0-0.8); Eosinophils % (auto) 0.3 % (0.0-7.0); Hematocrit 38.1 % (36.0-46.0); Hemoglobin 12.8 g/dL (12.2-16.2); Lymphocytes # (auto) 1.1 10 ^3/uL (0.4-5.4); Lymphocytes % (auto) 11.3 % (10.0-50.0); Mean Corpuscular Hemoglobin 28.8 pg (28.0-32.0); Mean Corpuscular Hgb Conc. 33.5 g/dL (32.0-36.0); Mean Corpuscular Volume 86.1 fL (80.0-100.0); Monocytes # (auto) 0.8 10 ^3/uL (0-1.3); Monocytes % (auto) 8.4 % (0.0-12.0); Neutrophils # (auto) 7.7 10 ^3/uL (1.6-8.6); Neutrophils % (auto) 79.4 % (37.0-80.0); Red Blood Cells 4.43 10^6/uL (4.0-5.20); Red Cell Distribution Width 13.7 % (11.8-14.3); White Blood Cell 9.7 10^3/uL (4.4-10.8)
[2021-01-19 09:54] LABS: Albumin 3.2 g/dL (3.4-5.0); Calcium 8.7 mg/dL (8.5-10.1); Potassium 3.5 mmol/L (3.5-5.1)
[2021-01-19 09:57] LABS: Bilirubin, Total 0.3 mg/dL (0.2-1.0); Total Protein 7.8 g/dL (6.4-8.2)
[2021-01-19] MEDS ORDERED: CLINDAMYCIN 900MG IV 50 ML IV ONE (10:00)
[2021-01-19] MEDS ORDERED: SODIUM CHLORIDE 0.9% 1,000 ML IV ONE (10:00)
[2021-01-19] MEDS ORDERED: cefTRIAXone 1GM/50ML D5W 50 ML IV ONE (10:00)
[2021-01-19] MEDS ORDERED: MORPHINE SULFATE INJECTION 2 MG/ML SYRG IV PRN ×3 (12:15)
[2021-01-19] MEDS ORDERED: NITROGLYCERIN 0.4 MG SL TAB SL PRN ×2 (12:15)
[2021-01-19] MEDS ORDERED: ALUM & MAG HYDROX-SIMETH LIQ(MAALOX) 30 ML PO PRN (12:15)
[2021-01-19] MEDS ORDERED: LORazepam 0.5 MG TAB PO PRN (12:15)
[2021-01-19] MEDS ORDERED: NIFEdipine ER 30 MG TAB PO ONE (12:15)
[2021-01-19] MEDS ORDERED: LABETALOL HCL 5 MG/ML 4ML SYRINGE IV ONE (12:15)
[2021-01-19] MEDS ORDERED: LABETALOL HCL 5 MG/ML 4ML SYRINGE IV PRN (12:15)
[2021-01-19] MEDS ORDERED: MEROPENEM 1GM IVPB 100 ML IV ONE (12:15)
[2021-01-19] MEDS ORDERED: DOCUSATE SOD 100 MG CAP PO PRN (12:15)
[2021-01-19] MEDS ORDERED: ACETAMINOPHEN 325 MG TAB PO PRN (12:15)
[2021-01-19] MEDS ORDERED: ONDANSETRON HCL 4 MG/2 ML VIAL IV PRN (12:15)
[2021-01-19] MEDS ORDERED: HYDROcodone-ACET 5/325MG TAB PO PRN (12:15)
[2021-01-19 12:49] LABS: Cholesterol 216 mg/dL (< 200); HDL Cholesterol 39 mg/dL (40-59); LDL Cholesterol 158 mg/dL (< 100); Triglycerides 154 mg/dL (< 150)
[2021-01-19] MEDS: SODIUM CHLORIDE 0.9% 1,000 ML IV SCH (14:19)
[2021-01-19] MEDS: CLINDAMYCIN 600MG IV 50 ML IV SCH ×2 (16:11→21:29)
[2021-01-19] MEDS ORDERED: INFLUENZA QUAD 2021-2022 0.5 ML SYRG IM ONE (18:30)
[2021-01-19] MEDS: ATORVASTATIN 20 MG TAB PO SCH (21:29)
[2021-01-19] MEDS: FAMOTIDINE (10MG/ML) 2ML VL IV SCH (21:29)
[2021-01-19 22:00] VITALS: BP 122/76
[2021-01-19] MEDS: MEROPENEM 1GM IVPB 100 ML IV SCH (22:21)
[2021-01-19 22:49] LABS: Urine Bacteria FEW /hpf (None Seen); Urine Blood Negative /uL (Negative); Urine Specific Gravity 1.012 (1.001-1.035); Urine WBC 3 /hpf (0 - 5)
[2021-01-19 23:13] LABS: Alcohol, Urine < 3.0 mg/dL (0-10); Amphetamine Screen, Urine NEGATIVE (NEGATIVE); Barbiturate Scree,Urine NEGATIVE (NEGATIVE); Benzodiazephine Screen, Urine POSITIVE (NEGATIVE); Cannabinoid Screen, Urine NEGATIVE (NEGATIVE); Cocaine Screen, Urine NEGATIVE (NEGATIVE); Opiate Scree,Urine NEGATIVE (NEGATIVE); Phencyclidine Screen, Urine NEGATIVE (NEGATIVE)
[2021-01-20 05:00] VITALS: BP 125/69
[2021-01-20] MEDS: SODIUM CHLORIDE 0.9% 1,000 ML IV SCH (05:25)
[2021-01-20] MEDS: CLINDAMYCIN 600MG IV 50 ML IV SCH (05:25)
[2021-01-20 06:55] LABS: INR 1.07 (0.9-1.15); Partial Thromboplastin Time 26.3 sec (23.6-33.0)
[2021-01-20 07:03] LABS: Albumin 2.4 g/dL (3.4-5.0); Anion Gap 7 (5-15); Blood Urea Nitrogen 14 mg/dL (7-18); Carbon Dioxide 24 mmol/L (21-32); Chloride 112 mmol/L (98-107); Glucose 102 mg/dL (74-106); Magnesium 2.2 mg/dL (1.6-2.6); Potassium 3.9 mmol/L (3.5-5.1); Sodium 143 mmol/L (136-145)
[2021-01-20 07:05] LABS: Alanine Aminotransferase 25 U/L (13-56); BUN/Creatinine Ratio 13.2; GFR African American 68 mL/min; GFR Non-African American 56 mL/min
[2021-01-20 07:14] LABS: Basophils # (auto) 0.1 10 ^3/uL (0-0.2); Basophils % (auto) 0.5 % (0.0-2.0); Eosinophils # (auto) 0.1 10 ^3/uL (0-0.8); Eosinophils % (auto) 0.7 % (0.0-7.0); Hemoglobin 10.8 g/dL (12.2-16.2); Lymphocytes # (auto) 1.5 10 ^3/uL (0.4-5.4); Lymphocytes % (auto) 15.9 % (10.0-50.0); Mean Corpuscular Hemoglobin 29.3 pg (28.0-32.0); Mean Corpuscular Hgb Conc. 33.6 g/dL (32.0-36.0); Mean Corpuscular Volume 87.3 fL (80.0-100.0); Monocytes # (auto) 1.1 10 ^3/uL (0-1.3); Monocytes % (auto) 11.3 % (0.0-12.0); Neutrophils # (auto) 6.9 10 ^3/uL (1.6-8.6); Neutrophils % (auto) 71.6 % (37.0-80.0); Red Blood Cells 3.67 10^6/uL (4.0-5.20); Red Cell Distribution Width 13.8 % (11.8-14.3); White Blood Cell 9.6 10^3/uL (4.4-10.8)
[2021-01-20 07:19] LABS: Alkaline Phosphatase 58 U/L (45-117); Aspartate Aminotransferase 16 U/L (15-37); Bilirubin, Total 0.3 mg/dL (0.2-1.0); Phosphorus 2.7 mg/dL (2.5-4.90); Total Protein 6.2 g/dL (6.4-8.2)
[2021-01-20 09:00] VITALS: BP 135/70
[2021-01-20] MEDS: MEROPENEM 1GM IVPB 100 ML IV SCH ×2 (09:41→21:19)
[2021-01-20] MEDS: ASPirin 81 mg TAB PO SCH (09:42)
[2021-01-20] MEDS: NIFEdipine ER 30 MG TAB PO SCH (09:42)
[2021-01-20] MEDS: FAMOTIDINE (10MG/ML) 2ML VL IV SCH ×2 (09:42→21:19)
[2021-01-20] MEDS: ENOXAPARIN SOD 40 MG/0.4 ML SYRINGE SC SCH (09:43)
[2021-01-20] MEDS ORDERED: D5W 5% IV SCH (12:15)
[2021-01-20] MEDS ORDERED: VORICONAZOLE IV SCH (12:15)
[2021-01-20 13:00] VITALS: BP 119/68
[2021-01-20] MEDS ORDERED: VANCOMYCIN PER PHARMACY 0 MG IV SCH (13:15)
[2021-01-20] MEDS ORDERED: VANCOMYCIN 1GM/250ML 250 ML IV ONE (14:00)
[2021-01-20 17:00] VITALS: BP 143/79
[2021-01-20] MEDS: ATORVASTATIN 20 MG TAB PO SCH (21:20)
[2021-01-20 22:00] VITALS: BP 138/77
[2021-01-21 05:00] VITALS: BP 129/72
[2021-01-21] MEDS ORDERED: VANCOMYCIN 1GM/250ML 250 ML IV SCH (07:00)
[2021-01-21 09:00] VITALS: BP 145/77
[2021-01-21] MEDS: ASPirin 81 mg TAB PO SCH (11:15)
[2021-01-21] MEDS: FAMOTIDINE (10MG/ML) 2ML VL IV SCH ×2 (11:15→21:35)
[2021-01-21] MEDS: NIFEdipine ER 30 MG TAB PO SCH (11:16)
[2021-01-21] MEDS: CIPROFLOXACIN HCL 500 MG TAB PO SCH ×2 (11:16→21:35)
[2021-01-21] MEDS: ENOXAPARIN SOD 40 MG/0.4 ML SYRINGE SC SCH (11:16)
[2021-01-21 13:00] VITALS: BP 143/74
[2021-01-21 17:00] VITALS: BP 153/86
[2021-01-21] MEDS: ATORVASTATIN 20 MG TAB PO SCH (21:35)
[2021-01-21 22:00] VITALS: BP 125/70
[2021-01-22 05:00] VITALS: BP 132/77
[2021-01-22 09:00] VITALS: BP 145/91
[2021-01-22] MEDS: FAMOTIDINE (10MG/ML) 2ML VL IV SCH ×2 (10:31→21:44)
[2021-01-22] MEDS: ASPirin 81 mg TAB PO SCH (10:32)
[2021-01-22] MEDS: ENOXAPARIN SOD 40 MG/0.4 ML SYRINGE SC SCH (10:33)
[2021-01-22] MEDS: NIFEdipine ER 30 MG TAB PO SCH (10:33)
[2021-01-22] MEDS: CIPROFLOXACIN HCL 500 MG TAB PO SCH ×2 (10:34→21:45)
[2021-01-22 12:12] VITALS: BP 145/91
[2021-01-22 12:36] VITALS: BP 141/80
[2021-01-22 16:45] VITALS: BP 154/83
[2021-01-22] MEDS: ATORVASTATIN 20 MG TAB PO SCH (21:44)
[2021-01-22 21:58] VITALS: BP 137/81
[2021-01-23 05:14] VITALS: BP 148/89
[2021-01-23 09:00] VITALS: BP 148/84
[2021-01-23] MEDS: NIFEdipine ER 30 MG TAB PO SCH (09:27)
[2021-01-23] MEDS: ENOXAPARIN SOD 40 MG/0.4 ML SYRINGE SC SCH (09:27)
[2021-01-23] MEDS: CIPROFLOXACIN HCL 500 MG TAB PO SCH ×2 (09:28→22:00)
[2021-01-23] MEDS: ASPirin 81 mg TAB PO SCH (09:28)
[2021-01-23] MEDS: FAMOTIDINE (10MG/ML) 2ML VL IV SCH (09:28)
[2021-01-23 12:35] VITALS: BP 140/92
[2021-01-23 17:25] VITALS: BP 152/94
[2021-01-23] MEDS: ATORVASTATIN 20 MG TAB PO SCH (22:00)
[2021-01-23 22:16] VITALS: BP 156/84
[2021-01-24 05:08] VITALS: BP 142/83
[2021-01-24 09:00] VITALS: BP 153/93
[2021-01-24] MEDS: ASPirin 81 mg TAB PO SCH (09:51)
[2021-01-24] MEDS: NIFEdipine ER 30 MG TAB PO SCH (09:52)
[2021-01-24] MEDS: CIPROFLOXACIN HCL 500 MG TAB PO SCH ×2 (09:52→21:09)
[2021-01-24] MEDS: ENOXAPARIN SOD 40 MG/0.4 ML SYRINGE SC SCH (09:53)
[2021-01-24 13:00] VITALS: BP 149/86
[2021-01-24 18:00] VITALS: BP 130/82
[2021-01-24] MEDS: ATORVASTATIN 20 MG TAB PO SCH (21:08)
[2021-01-24 22:25] VITALS: BP 135/83
[2021-01-25 05:00] VITALS: BP 141/81
== END 2021-01-25 07:30 | disposition home or self-care (01) | DRG 863 ==
LOC: ER 07:43 → OVERFLOW 12:07 → WEST WING 16:40
PROVIDERS: ADMIT Hospitalist; ATTEND Internal Medicine
DX: T81.40XA Infection following a procedure, unspecified, initial encounter (principal); T81.30XA Disruption of wound, unspecified, initial encounter; L03.311 Cellulitis of abdominal wall; I16.9 Hypertensive crisis, unspecified; L02.211 Cutaneous abscess of abdominal wall; I12.9 Hypertensive chronic kidney disease with stage 1 through stage 4 chronic kidney disease, or unspecified chronic kidney disease; E78.5 Hyperlipidemia, unspecified; E11.22 Type 2 diabetes mellitus with diabetic chronic kidney disease; E66.01 Morbid (severe) obesity due to excess calories; N18.31 Chronic kidney disease, stage 3a; Z20.822 Contact with and (suspected) exposure to COVID-19; Y83.8 Other surgical procedures as the cause of abnormal reaction of the patient, or of later complication, without mention of misadventure at the time of the procedure; Y92.89 Other specified places as the place of occurrence of the external cause
CPT/HCPCS: 36415; 80053; 80061; 80307; 81001; 82565; 83735; 83880; 84100; 84443; 84484; 85025; 85610; 85730; 87070; 87077; 87081; 87086; 87186; 87205; 87426; 96365; 96367; 96368; 96375; G0378; J0696; J2185; J2405; J3465; J3490; J7060

== ENCOUNTER → 2021-10-21 | Outpatient (CLI) | payer BC ==
[2021-10-21 10:29] LABS: Urine Bacteria MOD /hpf (None Seen); Urine Blood TRACE /uL (Negative); Urine Mucus FEW (None Seen); Urine Specific Gravity 1.028 (1.001-1.035); Urine WBC 5 /hpf (0 - 5)
[2021-10-21 11:03] LABS: Potassium 4.6 mmol/L (3.5-5.1)
[2021-10-21 11:13] LABS: Albumin 3.8 g/dL (3.4-5.0); BUN/Creatinine Ratio 13.5; Bilirubin, Total 0.5 mg/dL (0.2-1.0); Calcium 9.2 mg/dL (8.5-10.1); Magnesium 2.2 mg/dL (1.6-2.6); Total Protein 7.4 g/dL (6.4-8.2)
== END | disposition home or self-care (01) ==
LOC: LAB 09:48
PROVIDERS: ATTEND Internal Medicine
DX: R79.89 Other specified abnormal findings of blood chemistry (principal); E78.2 Mixed hyperlipidemia; R68.89 Other general symptoms and signs; R73.09 Other abnormal glucose
CPT/HCPCS: 36415; 80053; 80061; 81001; 83036; 83735; 84443; 84550; 87086; 87088

== ENCOUNTER → 2022-04-08 | Outpatient (CLI) | payer BC ==
[2022-04-08 09:39] LABS: Urine Blood Negative /uL (Negative); Urine Specific Gravity 1.029 (1.001-1.035)
[2022-04-08 09:42] LABS: Basophils # (auto) 0.1 10 ^3/uL (0-0.2); Eosinophils # (auto) 0.1 10 ^3/uL (0-0.8); Hemoglobin 13.4 g/dL (12.2-16.2); Lymphocytes # (auto) 1.3 10 ^3/uL (0.4-5.4); Mean Corpuscular Volume 86.4 fL (80.0-100.0)
[2022-04-08 09:46] LABS: Basophils % (auto) 0.6 % (0.0-2.0); Eosinophils % (auto) 1.2 % (0.0-7.0); Hematocrit 39.8 % (36.0-46.0); Lymphocytes % (auto) 14.2 % (10.0-50.0); Mean Corpuscular Hemoglobin 29.1 pg (28.0-32.0); Mean Corpuscular Hgb Conc. 33.7 g/dL (32.0-36.0); Monocytes # (auto) 0.7 10 ^3/uL (0-1.3); Monocytes % (auto) 7.4 % (0.0-12.0); Neutrophils # (auto) 6.9 10 ^3/uL (1.6-8.6); Neutrophils % (auto) 76.6 % (37.0-80.0); Red Blood Cells 4.61 10^6/uL (4.0-5.20); Red Cell Distribution Width 13.6 % (11.8-14.3); White Blood Cell 9.1 10^3/uL (4.4-10.8)
[2022-04-08 09:51] LABS: Calcium 8.7 mg/dL (8.5-10.1); Magnesium 2.2 mg/dL (1.6-2.6); Potassium 4.6 mmol/L (3.5-5.1)
[2022-04-08 09:57] LABS: Albumin 3.8 g/dL (3.4-5.0); BUN/Creatinine Ratio 16.5; Bilirubin, Total 0.5 mg/dL (0.2-1.0); Total Protein 7.6 g/dL (6.4-8.2)
== END | disposition home or self-care (01) ==
LOC: LAB 09:09
PROVIDERS: ATTEND Internal Medicine
DX: R79.89 Other specified abnormal findings of blood chemistry (principal); R94.6 Abnormal results of thyroid function studies; R73.09 Other abnormal glucose
CPT/HCPCS: 36415; 80053; 80061; 81003; 83036; 83735; 84443; 85025

== ENCOUNTER → 2022-04-27 | Outpatient (CLI) | payer BC ==
[2022-04-27 09:08] LABS: Potassium 4.4 mmol/L (3.5-5.1)
[2022-04-27 09:16] LABS: Albumin 3.7 g/dL (3.4-5.0); BUN/Creatinine Ratio 17.8; Bilirubin, Total 0.6 mg/dL (0.2-1.0); Calcium 8.7 mg/dL (8.5-10.1); Total Protein 7.9 g/dL (6.4-8.2)
== END | disposition home or self-care (01) ==
LOC: LAB 08:11
PROVIDERS: ATTEND Obstetrics & Gynecology
DX: Z01.419 Encounter for gynecological examination (general) (routine) without abnormal findings (principal); R19.00 Intra-abdominal and pelvic swelling, mass and lump, unspecified site
CPT/HCPCS: 36415; 80053; 86304

== ENCOUNTER → 2022-06-12 | Outpatient (CLI) | payer BC ==
[2022-06-12 10:39] LABS: Eosinophils # (auto) 0.4 10 ^3/uL (0-0.8); Lymphocytes # (auto) 1.5 10 ^3/uL (0.4-5.4); Neutrophils # (auto) 4.5 10 ^3/uL (1.6-8.6); Nucleated Red Blood Cells % 0.1 %; Red Cell Distribution Width 14.7 % (11.8-14.3); White Blood Cell 6.9 10^3/uL (4.4-10.8)
[2022-06-12 10:41] LABS: Basophils # (auto) 0 10 ^3/uL (0-0.2); Basophils % (auto) 0.4 % (0.0-2.0); Eosinophils % (auto) 5.7 % (0.0-7.0); Hematocrit 34.3 % (36.0-46.0); Lymphocytes % (auto) 21.8 % (10.0-50.0); Mean Corpuscular Hemoglobin 27.5 pg (28.0-32.0); Mean Corpuscular Hgb Conc. 32.1 g/dL (32.0-36.0); Mean Corpuscular Volume 85.6 fL (80.0-100.0); Monocytes # (auto) 0.5 10 ^3/uL (0-1.3); Monocytes % (auto) 6.8 % (0.0-12.0); Neutrophils % (auto) 65.3 % (37.0-80.0); Red Blood Cells 4.01 10^6/uL (4.0-5.20)
[2022-06-12 10:56] LABS: INR 0.97 (0.9-1.15); Partial Thromboplastin Time 28.3 sec (24.6-33.4)
[2022-06-12 11:48] LABS: Albumin 3.5 g/dL (3.4-5.0); BUN/Creatinine Ratio 20.5; Bilirubin, Total 0.3 mg/dL (0.2-1.0); Total Protein 7.8 g/dL (6.4-8.2)
== END | disposition home or self-care (01) ==
LOC: LAB 10:24
DX: C80.0 Disseminated malignant neoplasm, unspecified (principal)
CPT/HCPCS: 36415; 80053; 85025; 85610; 85730; 86304

== ENCOUNTER → 2022-06-22 | Outpatient (CLI) | payer BC ==
[2022-06-22 11:12] LABS: INR 0.95 (0.9-1.15); Partial Thromboplastin Time 28.2 sec (24.6-33.4)
[2022-06-22 11:14] LABS: Eosinophils # (auto) 0.2 10 ^3/uL (0-0.8); Eosinophils % (auto) 2.5 % (0.0-7.0); Hemoglobin 11.3 g/dL (12.2-16.2); Lymphocytes # (auto) 1.3 10 ^3/uL (0.4-5.4); Mean Corpuscular Volume 84.3 fL (80.0-100.0); Monocytes # (auto) 0.6 10 ^3/uL (0-1.3); Nucleated Red Blood Cells % 0.1 %
[2022-06-22 11:19] LABS: Basophils # (auto) 0 10 ^3/uL (0-0.2); Basophils % (auto) 0.7 % (0.0-2.0); Hematocrit 34.6 % (36.0-46.0); Lymphocytes % (auto) 20.7 % (10.0-50.0); Mean Corpuscular Hemoglobin 27.6 pg (28.0-32.0); Mean Corpuscular Hgb Conc. 32.7 g/dL (32.0-36.0); Monocytes % (auto) 9.4 % (0.0-12.0); Neutrophils # (auto) 4.3 10 ^3/uL (1.6-8.6); Neutrophils % (auto) 66.7 % (37.0-80.0); White Blood Cell 6.5 10^3/uL (4.4-10.8)
[2022-06-22 12:09] LABS: Albumin 3.5 g/dL (3.4-5.0); Calcium 8.9 mg/dL (8.5-10.1); Potassium 4.1 mmol/L (3.5-5.1)
[2022-06-22 12:12] LABS: BUN/Creatinine Ratio 15.2 (10.0-20.0); Bilirubin, Total 0.4 mg/dL (0.2-1.0); Total Protein 7.8 g/dL (6.4-8.2)
== END | disposition home or self-care (01) ==
LOC: LAB 10:35
PROVIDERS: ATTEND Internal Medicine Hematology & Oncology
DX: C80.0 Disseminated malignant neoplasm, unspecified (principal)
CPT/HCPCS: 36415; 80053; 85025; 85610; 85730; 86304

== ENCOUNTER → 2022-07-13 | Outpatient (CLI) | payer BC ==
[2022-07-13 10:50] LABS: Basophils # (auto) 0.1 10 ^3/uL (0-0.2); Eosinophils # (auto) 0 10 ^3/uL (0-0.8); Eosinophils % (auto) 0.4 % (0.0-7.0); Hematocrit 36.1 % (36.0-46.0); Hemoglobin 11.8 g/dL (12.2-16.2); Mean Corpuscular Hemoglobin 26.9 pg (28.0-32.0); Monocytes # (auto) 0.4 10 ^3/uL (0-1.3); Neutrophils # (auto) 4.9 10 ^3/uL (1.6-8.6)
[2022-07-13 10:52] LABS: Basophils % (auto) 1.1 % (0.0-2.0); Lymphocytes # (auto) 1.3 10 ^3/uL (0.4-5.4); Lymphocytes % (auto) 19.8 % (10.0-50.0); Mean Corpuscular Hgb Conc. 32.8 g/dL (32.0-36.0); Mean Corpuscular Volume 81.9 fL (80.0-100.0); Monocytes % (auto) 6.3 % (0.0-12.0); Neutrophils % (auto) 72.4 % (37.0-80.0); Red Blood Cells 4.41 10^6/uL (4.0-5.20); Red Cell Distribution Width 15.7 % (11.8-14.3); White Blood Cell 6.8 10^3/uL (4.4-10.8)
[2022-07-13 12:21] LABS: Albumin 3.6 g/dL (3.4-5.0); Calcium 9.3 mg/dL (8.5-10.1); Magnesium 2.3 mg/dL (1.6-2.6); Potassium 4.1 mmol/L (3.5-5.1)
[2022-07-13 12:23] LABS: BUN/Creatinine Ratio 14.5 (10.0-20.0)
[2022-07-13 12:26] LABS: Bilirubin, Total 0.3 mg/dL (0.2-1.0); Total Protein 7.4 g/dL (6.4-8.2)
== END | disposition home or self-care (01) ==
LOC: LAB 10:36
PROVIDERS: ATTEND Internal Medicine Hematology & Oncology
DX: C80.0 Disseminated malignant neoplasm, unspecified (principal); C56.9 Malignant neoplasm of unspecified ovary
CPT/HCPCS: 36415; 80053; 83735; 85025; 86304